=== PATIENT | female | born 1975 | race Two or more races ===

== ENCOUNTER 2025-05-10 21:44 | Emergency (ER) | payer OTHER ==
[~2025-05-10] VITALS: Ht 165.1 cm; Wt 85.0 kg
[2025-05-10 21:52] VITALS: TEMP 97.9
[2025-05-11] MEDS: HYDROCODONE/ACETAMINOPHEN 5-325 MG TABLET PO ONE (01:23)
[2025-05-11 02:30] VITALS: BP 119/82; PULSE 70; RESP 16; O2SAT 99
== END 2025-05-11 04:15 | disposition home or self-care (01) ==
LOC: EMS 21:44
DX: S90.822A Blister (nonthermal), left foot, initial encounter (principal); X58.XXXA Exposure to other specified factors, initial encounter; Y93.89 Activity, other specified; Y92.89 Other specified places as the place of occurrence of the external cause; Y99.8 Other external cause status
CPT/HCPCS: 99283